=== PATIENT | female | born 1995 | race Caucasian/White ===

== ENCOUNTER 2017-06-17 17:26 | Emergency (ER) | payer OTHER ==
[~2017-06-17] VITALS: Ht 180.3 cm; Wt 177.6 kg
[~2017-06-17 17:26] MED LIST: BCPILLS PO; BUSP-8 PO; CLC100X PO; CLON0.1T12 PO; ESCI1TAB6 PO; FAMO20TA11 PO; GDN40 PO; HYDR1CAP85 PO; METF1TAB53 PO; ONDA4TAB10 PO; VENL150C PO; ZIPR60CA PO
[2017-06-17 17:51] VITALS: Ht 180.3 cm; Wt 177.6 kg
[2017-06-17] MEDS ORDERED: ONDANSETRON INJ 2 MG/ML 2 ML VIAL IV STA (18:50)
[2017-06-17] MEDS ORDERED: MoRPHine SULFATE 10 MG/ML CARP/VIAL IV STA (18:50)
[2017-06-17] MEDS ORDERED: OPTIRAY 320 IV PRN (19:00)
--- NOTE | 2017-06-17 19:06 | EMERGENCY ROOM VISIT NOTE ---
History Report prepared by Anat: Bertha Ramos Under the Supervision of: Dr. Kenney Zelaya M.D. First contact with patient: 18:25 Chief Complaint: NAUSEA Stated Complaint: NAUSEA,DIZZINESS,HISTORY OF SPLEEN PROBLEMS Nursing Triage Summary: abd pain pt had "spleen issue over the summer, splenic infarct" n/v History of Present Illness The patient is a 21 year old white female with a past medical history of GERD, cholecystectomy, and bipolar disorder who presents to the ED with a cc of intermittent left sided abdominal pain beginning 3 months ago. She did not come in earlier than today because she did not have insurance. Positive back pain, vomiting, nausea. Her last bowel movement was this morning but she states that is normal. Patient currently has scabies. No recent antibiotic use. Not on blood thinners. LNMP was a few months ago, but this is normal for her. Negative cough, fever, urinary symptoms. Source of History: patient Onset: 3 months ago Position: abdomen (left side) Timing: intermittent Associated Symptoms: + nausea, + vomiting, + back pain, No fevers, No cough , No urinary symptoms Review of Systems See HPI for pertinent positives and negatives. A total of ten systems were reviewed and were otherwise negative. Past Medical & Surgical Medical Problems: (1) Anxiety (2) Bipolar 1 disorder (3) Depression (4) GERD (gastroesophageal reflux disease) (5) Scabies Family History Cancer Grandmother has a history of UTIs. Social History Smoking Status: Never Smoker Housing Status: lives with family Occupation Status: student Current/Historical Medications Scheduled Control Pills ( Control Pills), 1 TAB PO DAILY Buspirone Hcl (Buspirone Hcl), 10 MG PO BID Clonidine Hcl (Catapres), 0.2 MG PO HS Docusate Sodium (Colace), 200 MG PO HS Escitalopram Oxalate (Lexapro), 5 MG PO DAILY Famotidine (Pepcid), 20 MG PO BID Metformin Hcl (Glucophage Ext Rel), 1,000 MG PO BID Omeprazole (Prilosec), 40 MG PO DAILY Ondasetron Odt (Zofran Odt), 4 MG SL Q6H Promethazine Hcl (Phenergan), 12.5 MG PO Q6H Venlafaxine Hcl (Effexor Xr), 300 MG PO QAM Ziprasidone (Ziprasidone HCl), 40 MG PO DAILY Ziprasidone Hcl (Geodon), 60 MG PO DAILY Scheduled PRN Hydroxyzine Pamoate (Vistaril), 25-50 MG PO TID PRN for Anxiety Ondasetron Odt (Zofran Odt), 4 MG PO Q4-6HRS PRN for Nausea Allergies Coded Allergies: No Known Allergies (Unverified , 06/23/14) Physical Exam Vital Signs Date Time Temp Pulse Resp B/P (MAP) Pulse Ox O2 Delivery O2 Flow Rate FiO2 06/17/17 21:18 36.8 86 20 119/47 100 Room Air 06/17/17 19:45 86 20 143/80 100 Room Air 06/17/17 19:10 86 06/17/17 18:50 83 20 159/80 100 Room Air 06/17/17 17:51 36.9 100 20 168/120 98 Room Air Physical Exam GENERAL: Awake, alert, well-appearing, NAD. Obese. HENT: Normocephalic, atraumatic. EYES: Normal conjunctiva. Sclera non-icteric. NECK: Supple. No nuchal rigidity. FROM. RESPIRATORY: CTAB, no rhonchi, wheezing, crackles CARDIAC: RRR, no MRG ABDOMEN: Soft, ND, BS+. LUQ tenderness to palpation. LLQ tenderness to palpation. No guarding or rebound. No peritonitis. MSK: No chest wall TTP, no LE edema NEURO: GCS 15, CN 2-12 intact, moves all 4s on command SKIN: No rash or jaundice noted. Medical Decision & Procedures ER Provider Diagnostic Interpretation: Radiology results as stated below per my review and radiologist interpretation: CT ABD/PELVIS IV CONTRAST ONLY CLINICAL HISTORY: Generalized abdominal pain. Obesity. COMPARISON STUDY: 05/26/2014 TECHNIQUE: Following the IV administration of 90 mL of Optiray-320, CT scan of the abdomen and pelvis was performed from the lung bases to the proximal femurs. Images are reviewed in the axial, sagittal, and coronal planes. IV contrast was administered without complication. A dose lowering technique was utilized adhering to the principles of ALARA. CT DOSE: 2473.32 mGy.cm FINDINGS: Lower chest: There are mild basilar atelectatic changes. Liver: The contrast-enhanced liver is normal in size, contour, and attenuation. There is no intrahepatic biliary ductal dilatation. The hepatic veins and portal veins are patent. Gallbladder: Surgically absent Spleen: Normal in size and attenuation. Pancreas: Unremarkable. Adrenal glands: Unremarkable. Kidneys: There is symmetric renal cortical enhancement. The kidneys are normal in size without hydronephrosis. Bowel: There are no transition zones indicate bowel obstruction. There is no acute diverticulitis. The appendix was not visualized with certainty. There are no findings to indicate acute appendicitis. There is debris within the stomach, likely secondary to a recent meal. Peritoneum: There is no intraperitoneal free air or abdominal ascites. Vasculature: The abdominal aorta is normal in course and caliber. Adenopathy: There are mildly prominent ileocolic lymph nodes, likely reactive Pelvic viscera: The bladder, and pelvic viscera are unremarkable. Skeletal structures: No destructive osseous lesions are seen. IMPRESSION: 1. No evidence of bowel obstruction. No evidence of free air 2. No acute inflammatory changes Electronically signed by: Shant Becerra M.D. 06/17/2017 8:19 PM Laboratory Results 06/17/17 16:54 Red Blood Count 4.37, Mean Corpuscular Volume 88.3, Mean Corpuscular Hemoglobin 28.4, Mean Corpuscular Hemoglobin Concent 32.1, Mean Platelet Volume 9.1, Neutrophils (%) (Auto) 54.2, Lymphocytes (%) (Auto) 36.3, Monocytes (%) (Auto) 7.8, Eosinophils (%) (Auto) 1.3, Basophils (%) (Auto) 0.3, Neutrophils # (Auto) 4.67, Lymphocytes # (Auto) 3.13, Monocytes # (Auto) 0.67, Eosinophils # (Auto) 0.11, Basophils # (Auto) 0.03 06/17/17 16:54 Test 06/17/17 16:54 06/17/17 18:40 White Blood Count 8.62 K/uL (4.8-10.8) Red Blood Count 4.37 M/uL (4.2-5.4) Hemoglobin 12.4 g/dL (12.0-16.0) Hematocrit 38.6 % (37-47) Mean Corpuscular Volume 88.3 fL (80-100) Mean Corpuscular Hemoglobin 28.4 pg (25-34) Mean Corpuscular Hemoglobin Concent 32.1 g/dl (32-36) Platelet Count 253 K/uL (130-400) Mean Platelet Volume 9.1 fL (7.4-10.4) Neutrophils (%) (Auto) 54.2 % Lymphocytes (%) (Auto) 36.3 % Monocytes (%) (Auto) 7.8 % Eosinophils (%) (Auto) 1.3 % Basophils (%) (Auto) 0.3 % Neutrophils # (Auto) 4.67 K/uL (1.4-6.5) Lymphocytes # (Auto) 3.13 K/uL (1.2-3.4) Monocytes # (Auto) 0.67 K/uL (0.11-0.59) Eosinophils # (Auto) 0.11 K/uL (0-0.5) Basophils # (Auto) 0.03 K/uL (0-0.2) RDW Standard Deviation 44.7 fL (36.4-46.3) RDW Coefficient of Variation 13.9 % (11.5-14.5) Immature Granulocyte % (Auto) 0.1 % Immature Granulocyte # (Auto) 0.01 K/uL (0.00-0.02) Anion Gap 9.0 mmol/L (3-11) Est Creatinine Clear Calc Drug Dose 272.5 ml/min Estimated GFR () > 150.0 Estimated GFR (Non- 131.9 BUN/Creatinine Ratio 24.2 (10-20) Calcium Level 8.9 mg/dl (8.5-10.1) Total Bilirubin 0.2 mg/dl (0.2-1) Direct Bilirubin < 0.1 mg/dl (0-0.2) Aspartate Amino Transf (AST/SGOT) 15 U/L (15-37) Alanine Aminotransferase (ALT/SGPT) 21 U/L (12-78) Alkaline Phosphatase 80 U/L (45-117) Total Protein 7.1 gm/dl (6.4-8.2) Albumin 3.4 gm/dl (3.4-5.0) Lipase 99 U/L (73-393) Urine Color YELLOW Urine Appearance CLEAR (CLEAR) Urine pH 6.5 (4.5-7.5) Urine Specific [place] 1.025 (1.000-1.030) Urine Protein NEG (NEG) Urine Glucose (UA) NEG (NEG) Urine Ketones NEG (NEG) Urine Occult Blood TRACE (NEG) Urine Nitrite NEG (NEG) Urine Bilirubin NEG (NEG) Urine Urobilinogen NEG (NEG) Urine Leukocyte Esterase NEG (NEG) Urine WBC (Auto) 1-5 /hpf (0-5) Urine RBC (Auto) 5-10 /hpf (0-4) Urine Hyaline Casts (Auto) 1-5 /lpf (0-5) Urine Epithelial Cells (Auto) >30 /lpf (0-5) Urine Bacteria (Auto) 2+ (NEG) Laboratory results reviewed by me Medications Administered Medications (Trade) Dose Ordered Sig/Raffaele Route Start Time Stop Time Status Last Admin Dose Admin Morphine Sulfate (MoRPHine SULFATE INJ) 10 mg NOW STAT IV 06/17/17 18:50 06/17/17 18:52 DC 06/17/17 19:05 10 MG Ondansetron HCl (Zofran Inj) 4 mg NOW STAT IV 06/17/17 18:50 06/17/17 18:52 DC 06/17/17 19:05 4 MG Diphenhydramine HCl (Benadryl Inj) 50 mg NOW STAT IV 06/17/17 19:17 06/17/17 19:23 DC 06/17/17 19:20 50 MG ED Course 1803: The patient was evaluated in room A2. A complete history and physical exam was performed. 2119: I reevaluated the patient. Discussed results and discharge instructions: She verbalized understanding and agreement. The patient is ready for discharge. Medical Decision The patient is a 21 year old white female with a past medical history of GERD, cholecystectomy, and bipolar disorder who presents to the ED with a cc of intermittent left sided abdominal pain beginning 3 months ago. Differential diagnosis: Etiologies such as DVT, musculoskeletal, infection, joint effusion, trauma, lymphedema, idiopathic, CHF, as well as others were entertained. Patient was seen and evaluated the bedside. Patient states she's had some intermittent left upper quadrant abdominal pains been ongoing over the last 2 months. Patient states that she recently got insurance she presented here today for further evaluation. She had complain of some nausea with some vomiting. She describes as 2 episodes. Patient states that she has had no recent trauma. Patient does have a prior history of US but does not have any vaginal complaints. Patient did have blood work completed along with urinalysis , pain and nausea control, and a CT of the abdomen pelvis. Patient's blood work was fairly unremarkable. Patient had a normal white blood cell count. Patient normal LFTs and lipase. Urinalysis was likely contaminated as the patient did have a fair amount of epithelial cells and did not describe any lower abdominal pain or dysuria. Patient's CT did not show anything that requires any surgical or medical management. Upon reassessment the patient's tachycardia and pain improved. Patient was no longer nauseated. Patient was told that she is to follow-up with her specialist given her past medical history and lack of insurance she has not taken medications in quite some time. Patient was given prescriptions for her reflux as well as for nausea. Patient was able to tolerate by mouth. Patient was deemed suitable for outpatient follow-up and discharge. Patient was given strict follow-up, discharge, and return precautions. All questions were answered. Patient was deemed suitable for outpatient follow-up at this time. Patient agreed with the plan of care and was safely discharged home. Medication Reconcilliation Current Medication List: was personally reviewed by me Blood Pressure Screening Patient's blood pressure: Elevated blood pressure Blood pressure disposition: Elevated BP felt to be situational Impression Primary Impression: Abdominal pain Additional Impression: Nausea & vomiting Scribe Attestation The scribe's documentation has been prepared under my direction and personally reviewed by me in its entirety. I confirm that the note above accurately reflects all work, treatment, procedures, and medical decision making performed by me. Departure Information Dispostion Home / Self-Care Prescriptions Ondasetron Odt (ZOFRAN ODT) 4 Mg Tab 4 MG SL Q6H for Nausea, #6 TAB Prov: Kenney Zelaya M.D. 06/17/17 Omeprazole (PRILOSEC) 40 Mg Cap 40 MG PO DAILY for 30 Days, #30 CAP Prov: Kenney Zelaya M.D. 06/17/17 Promethazine Hcl (PHENERGAN) 12.5 Mg Tab 12.5 MG PO Q6H, #6 TAB Prov: Kenney Zelaya M.D. 06/17/17 Referrals Binta Machado M.D. (PCP) Patient Instructions Abdominal Pain, My [facility] Additional Instructions Please return to the emergency department if you have worsening or recurrent symptoms not amenable to at-home treatment. Please call for a follow-up appointment with her primary care physician. Please take your medications as prescribed. If you have other concerns and/or complaints please feel free to also call your primary care physician's office or return the ED for further evaluation, management, and treatment. Please call your PCP, mental health specialist, and LABORATORY CHEMIST for further care. You received narcotic or benzodiazepene medication while in the emergency room today. This is an addictive medication that may cause drowziness as well as constipation. Do not drive, operate heavy machinery, or drink alcohol under the influence of this medication. You may take 600 mg Ibuprofen every 6 hours as needed for pain with food for no more than 2 consecutive days. You may take tylenol 1000 mg every 6 hours as needed for pain. You may take motrin and tylenol separately or at the same time. Take your medications as prescribed. You have been examined and treated today on an emergency basis only. This is not a substitute for, or an effort to provide, complete comprehensive medical care. It is impossible to recognize and treat all injuries or illnesses in a single emergency department visit. It is therefore important that you follow up closely with [facility], your PCP, and/or your specialist(s). Call as soon as possible for an appointment. Thank you for your time and consideration. I look forward to speaking with you again soon. Please don't hesitate to call us if you have any questions. Problem Qualifiers Primary Impression: Abdominal pain Abdominal location: left upper quadrant Qualified Codes: R10.12 - Left upper quadrant pain Additional Impression: Nausea & vomiting Vomiting type: unspecified Vomiting Intractability: non-intractable Qualified Codes: R11.2 - Nausea with vomiting, unspecified
[2017-06-17 19:08] LABS: URINE APPEARANCE CLEAR (CLEAR); URINE BILIRUBIN NEG (NEG); URINE COLOR YELLOW; URINE EPITHELIAL CELL AUTO >30 /lpf (0-5); URINE NITRITE NEG (NEG); URINE PH 6.5 (4.5-7.5); URINE SPECIFIC GRAVITY 1.025 (1.000-1.030); UROBILINOGEN NEG (NEG); ZZUR CULT IF INDIC CLEAN CATCH YES
[2017-06-17 19:09] LABS: MANUAL MICROSCOPIC REQUIRED? NO; REVIEW REQ? NO
[2017-06-17 19:13] LABS: BASO % 0.3 %; BASO ABS # 0.03 K/uL (0-0.2); COMPLETE YES; EOS % 1.3 %; HEMATOCRIT 38.6 % (37-47); IG% 0.1 %; LYMPH % 36.3 %; LYMPH ABS # 3.13 K/uL (1.2-3.4); MEAN CELL VOLUME 88.3 fL (80-100); MEAN CORPUSCULAR HEMOGLOBIN 28.4 pg (25-34); MEAN CORPUSCULAR HGB CONC 32.1 g/dl (32-36); MEAN PLATELET VOLUME 9.1 fL (7.4-10.4); MONO % 7.8 %; NEUT % 54.2 %; PLATELET COUNT 253 K/uL (130-400); RED BLOOD COUNT 4.37 M/uL (4.2-5.4); WHITE BLOOD COUNT 8.62 K/uL (4.8-10.8)
[2017-06-17] MEDS ORDERED: DiphenhydrAMINE HCL 50 MG/ML VIAL IV STA (19:17)
[2017-06-17 19:42] LABS: ALT/SGPT 21 U/L (12-78); BLOOD UREA NITROGEN 14 mg/dl (7-18); BUN/CREATININE RATIO 24.2 (10-20); CALCIUM 8.9 mg/dl (8.5-10.1); CARBON DIOXIDE 26 mmol/L (21-32); CHLORIDE 105 mmol/L (98-107); CREATININE 0.59 mg/dl (0.60-1.20); GLUCOSE 105 mg/dl (70-99); POTASSIUM 3.6 mmol/L (3.5-5.1); SODIUM 140 mmol/L (136-145)
[2017-06-17 19:45] LABS: ALKALINE PHOSPHATASE 80 U/L (45-117); AST/SGOT 15 U/L (15-37)
--- NOTE | 2017-06-17 20:20 | DIAGNOSTIC IMAGING REPORT ---
CT ABD/PELVIS IV CONTRAST ONLY CLINICAL HISTORY: Generalized abdominal pain. Obesity. COMPARISON STUDY: 05/26/2014 TECHNIQUE: Following the IV administration of 90 mL of Optiray-320, CT scan of the abdomen and pelvis was performed from the lung bases to the proximal femurs. Images are reviewed in the axial, sagittal, and coronal planes. IV contrast was administered without complication. A dose lowering technique was utilized adhering to the principles of ALARA. CT DOSE: 2473.32 mGy.cm FINDINGS: Lower chest: There are mild basilar atelectatic changes. Liver: The contrast-enhanced liver is normal in size, contour, and attenuation. There is no intrahepatic biliary ductal dilatation. The hepatic veins and portal veins are patent. Gallbladder: Surgically absent Spleen: Normal in size and attenuation. Pancreas: Unremarkable. Adrenal glands: Unremarkable. Kidneys: There is symmetric renal cortical enhancement. The kidneys are normal in size without hydronephrosis. Bowel: There are no transition zones indicate bowel obstruction. There is no acute diverticulitis. The appendix was not visualized with certainty. There are no findings to indicate acute appendicitis. There is debris within the stomach, likely secondary to a recent meal. Peritoneum: There is no intraperitoneal free air or abdominal ascites. Vasculature: The abdominal aorta is normal in course and caliber. Adenopathy: There are mildly prominent ileocolic lymph nodes, likely reactive Pelvic viscera: The bladder, and pelvic viscera are unremarkable. Skeletal structures: No destructive osseous lesions are seen. IMPRESSION: 1. No evidence of bowel obstruction. No evidence of free air 2. No acute inflammatory changes Electronically signed by: Shant Becerra M.D. 06/17/2017 8:19 PM Dictated Date/Time: 06/17/2017 8:15 PM
[2017-06-17 21:18] VITALS: BP 119/47; PULSE 86; TEMP 36.8; O2SAT 100
[2017-06-17] MEDS ORDERED: OMEP40CA41 PO ×2 (21:30→21:32)
[2017-06-17] MEDS ORDERED: PROM12.56 PO ×2 (21:30→21:32)
[2017-06-17] MEDS ORDERED: ONDA4TAB10 SL ×2 (21:30→21:32)
== END 2017-06-17 21:52 | disposition home or self-care (01) ==
LOC: C.EDB 17:29 → C.EDA 21:52
DX: R10.12 Left upper quadrant pain (principal); R11.2 Nausea with vomiting, unspecified; F31.9 Bipolar disorder, unspecified; F41.9 Anxiety disorder, unspecified; K21.9 Gastro-esophageal reflux disease without esophagitis; Z79.84 Long term (current) use of oral hypoglycemic drugs; Z79.899 Other long term (current) drug therapy; Z80.9 Family history of malignant neoplasm, unspecified

== ENCOUNTER 2017-07-27 16:32 | Emergency (ER) | payer OTHER ==
[~2017-07-27] VITALS: Ht 180.3 cm; Wt 165.0 kg
[~2017-07-27 16:32] MED LIST changes: +OMEP40CA41 PO; +ONDA4TAB10 SL; +PROM12.529 PO
[2017-07-27 16:44] VITALS: TEMP 36.6; Ht 180.3 cm; Wt 165.0 kg
[2017-07-27] MEDS ORDERED: ONDA4TAB46 PO (17:02)
[2017-07-27] MEDS ORDERED: PROM25TA16 PO (17:02)
[2017-07-27] MEDS ORDERED: LITH1TAB10 PO (17:02)
[2017-07-27] MEDS ORDERED: DOCU-94 PO (17:02)
[2017-07-27] MEDS ORDERED: ZNTT/150 PO (17:02)
[2017-07-27] MEDS ORDERED: POLY335019 PO (17:02)
[2017-07-27] MEDS ORDERED: HYDR25CA PO (17:02)
[2017-07-27] MEDS ORDERED: KETOROLAC TROMETHAMINE 30 MG/ML VIAL IV STA (17:39)
[2017-07-27] MEDS ORDERED: SODIUM CHLORIDE 0.9% 1000ML 1,000 ML IV STA (17:39)
[2017-07-27] MEDS ORDERED: ONDANSETRON INJ 2 MG/ML 2 ML VIAL IV STA (17:39)
--- NOTE | 2017-07-27 17:49 | EMERGENCY ROOM VISIT NOTE ---
History Report prepared by Anat: Isauro Prince Under the Supervision of: Dr. Artur Jenkins M.D. First contact with patient: 17:34 Chief Complaint: OTHER COMPLAINT Stated Complaint: FAINTING,VOMTING,FEVER,CHILLS,PAIN History of Present Illness The patient is a 21 year old female who presents to the Emergency Room with complaints of constant flu-like symptoms for the past 4 days. She has associated symptoms of fevers, vomiting, constipation, and chills. In addition, she states she had a syncope episode yesterday and has had intermittent loss of feeling in her arms and legs recently. She states she has not taken her fever with a thermometer. Patient denies associated symptoms of a cough and stuffy nose. 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 Pertinent past medical history includes a cholecystectomy and GERD. She states she has a history of migraines and dizziness. Patient denies any chance of . She denies any history of tick bites. Patient states she has not been able to take her regular medications because of these symptoms. Pertinent family medical history includes diabetes mellitus. Patient's PCP is Dr. Binta Machado of the [facility]. Source of History: patient Onset: 4 days ago Position: other (Flu-like symptoms) Timing: constant Associated Symptoms: + fevers, + chills, + vomiting Note: Patient has constipation. Review of Systems See HPI for pertinent positives & negatives. A total of 10 systems reviewed and were otherwise negative. Past Medical & Surgical Medical Problems: (1) Anxiety (2) Bipolar 1 disorder (3) Depression (4) GERD (gastroesophageal reflux disease) (5) Scabies Family History Cancer FHx: diabetes mellitus Social History Smoking Status: Former Smoker Housing Status: lives with family Occupation Status: student Current/Historical Medications Scheduled Armorel Carbonate Ext Rel (Lithobid Ext Rel), 300 MG PO BID Ranitidine (Zantac), 150 MG PO BID Scheduled PRN Docusate Sodium (Colace), 1 CAP PO UD PRN for Constipation Hydroxyzine Pamoate (Vistaril), 1-2 CAP PO 3-5XD PRN for Anxiety and/or Sedation Ondansetron Hcl (Zofran), 4-8 MG PO Q4-6H PRN for Nausea Polyethylene Glycol 3350 (Miralax), 17 GM PO DAILY PRN for Consult Promethazine HCl (Promethazine HCl), 25 MG PO UD PRN for Nausea or Vomiting Allergies Coded Allergies: Morphine (Verified Allergy, Unknown, HIVES, 07/27/17) Physical Exam Vital Signs Date Time Temp Pulse Resp B/P (MAP) Pulse Ox O2 Delivery O2 Flow Rate FiO2 07/27/17 19:48 90 18 138/80 98 07/27/17 18:37 94 16 143/89 100 Room Air 07/27/17 16:44 36.6 114 20 127/81 99 Room Air Physical Exam GENERAL: Patient is in no acute distress. HEENT: No acute trauma, normocephalic atraumatic, mucous membranes moist, no nasal congestion, no scleral icterus. No throat erythema or exudate. NECK: No stridor, no adenopathy, no meningismus, trachea is midline. LUNGS: Clear to auscultation bilaterally, no wheeze, no rhonchi, breath sounds equal. HEART: Without murmurs gallops or rubs, regular rate and rhythm. ABDOMEN: Soft, diffused to mildly tender, bowel sounds positive, no hernias, no peritonitis. EXTREMITIES: No cyanosis or edema, full range of motion of all the joints without pain or difficulty, no signs for acute trauma. NEUROLOGIC: Oriented x 3, no acute motor or sensory deficits, no focal weakness. SKIN: No rash, no jaundice, no diaphoresis. Medical Decision & Procedures ER Provider Diagnostic Interpretation: Radiology results as stated below per my review and radiologist interpretation: ABDOMEN 2VIEW W/PA CHEST RTN CLINICAL HISTORY: vomiting nausea COMPARISON STUDY: No previous studies for comparison. FINDINGS: The soft tissues, psoas shadows, renal outlines and intestinal gas pattern appear normal. There is no evidence for bowel obstruction. There is no evidence for free intraperitoneal air. No abnormal abdominal calcifications are seen. A frontal view of the chest was performed and is unremarkable. IMPRESSION: Normal study. The above report was generated using voice recognition software. It may contain grammatical, syntax or spelling errors. Electronically signed by: Tez Heck M.D. 07/27/2017 7:23 PM HEAD WITHOUT CONTRAST (CT) CT DOSE: 537.48 mGy.cm HISTORY: Mental status change headaches TECHNIQUE: Multiaxial CT images of the head were performed without the use of intravenous contrast. A dose lowering technique was utilized adhering to the principles of ALARA. Comparison: None. Findings: The paranasal sinuses and mastoid air cells are clear. The calvarium and skull base are intact. The ventricles and sulci are within normal limits. There is no mass, hematoma, midline shift, or acute infarct. Impression: No acute intracranial abnormality. The above report was generated using voice recognition software. It may contain grammatical, syntax or spelling errors. Electronically signed by: Tez Heck M.D. 07/27/2017 6:51 PM Laboratory Results 07/27/17 17:05 Red Blood Count 4.91, Mean Corpuscular Volume 87.4, Mean Corpuscular Hemoglobin 29.1, Mean Corpuscular Hemoglobin Concent 33.3, Mean Platelet Volume 8.8, Neutrophils (%) (Auto) 61.4, Lymphocytes (%) (Auto) 32.4, Monocytes (%) (Auto) 4.8, Eosinophils (%) (Auto) 0.9, Basophils (%) (Auto) 0.3, Neutrophils # (Auto) 5.55, Lymphocytes # (Auto) 2.93, Monocytes # (Auto) 0.43, Eosinophils # (Auto) 0.08, Basophils # (Auto) 0.03 07/27/17 17:05 Test 07/27/17 17:05 07/27/17 17:10 07/27/17 17:25 White Blood Count 9.04 K/uL (4.8-10.8) Red Blood Count 4.91 M/uL (4.2-5.4) Hemoglobin 14.3 g/dL (12.0-16.0) Hematocrit 42.9 % (37-47) Mean Corpuscular Volume 87.4 fL (80-100) Mean Corpuscular Hemoglobin 29.1 pg (25-34) Mean Corpuscular Hemoglobin Concent 33.3 g/dl (32-36) Platelet Count 278 K/uL (130-400) Mean Platelet Volume 8.8 fL (7.4-10.4) Neutrophils (%) (Auto) 61.4 % Lymphocytes (%) (Auto) 32.4 % Monocytes (%) (Auto) 4.8 % Eosinophils (%) (Auto) 0.9 % Basophils (%) (Auto) 0.3 % Neutrophils # (Auto) 5.55 K/uL (1.4-6.5) Lymphocytes # (Auto) 2.93 K/uL (1.2-3.4) Monocytes # (Auto) 0.43 K/uL (0.11-0.59) Eosinophils # (Auto) 0.08 K/uL (0-0.5) Basophils # (Auto) 0.03 K/uL (0-0.2) RDW Standard Deviation 42.1 fL (36.4-46.3) RDW Coefficient of Variation 13.2 % (11.5-14.5) Immature Granulocyte % (Auto) 0.2 % Immature Granulocyte # (Auto) 0.02 K/uL (0.00-0.02) Anion Gap 8.0 mmol/L (3-11) Est Creatinine Clear Calc Drug Dose 216.4 ml/min Estimated GFR () 142.1 Estimated GFR (Non- 122.6 BUN/Creatinine Ratio 27.1 (10-20) Calcium Level 9.2 mg/dl (8.5-10.1) Magnesium Level 1.9 mg/dl (1.8-2.4) Total Bilirubin 0.3 mg/dl (0.2-1) Aspartate Amino Transf (AST/SGOT) 11 U/L (15-37) Alanine Aminotransferase (ALT/SGPT) 23 U/L (12-78) Alkaline Phosphatase 76 U/L (45-117) Total Creatine Kinase 42 U/L (26-192) Troponin I < 0.015 ng/ml (0-0.045) Total Protein 7.5 gm/dl (6.4-8.2) Albumin 3.4 gm/dl (3.4-5.0) Globulin 4.1 gm/dl (2.5-4.0) Albumin/Globulin Ratio 0.8 (0.9-2) Thyroid Stimulating Hormone (TSH) 2.320 uIu/ml (0.300-4.500) Human Chorionic Gonadotropin, Qual NEG (NEG) Armorel Level < 0.2 mMOL/L (0.6-1.2) Lyme Disease IgG Antibody NEG (NEG) Lyme Disease IgM Antibody NEG (NEG) Urine Color YELLOW Urine Appearance CLEAR (CLEAR) Urine pH 6.0 (4.5-7.5) Urine Specific Renner 1.022 (1.000-1.030) Urine Protein NEG (NEG) Urine Glucose (UA) NEG (NEG) Urine Ketones NEG (NEG) Urine Occult Blood TRACE (NEG) Urine Nitrite NEG (NEG) Urine Bilirubin NEG (NEG) Urine Urobilinogen NEG (NEG) Urine Leukocyte Esterase NEG (NEG) Urine WBC (Auto) 1-5 /hpf (0-5) Urine RBC (Auto) 0-4 /hpf (0-4) Urine Hyaline Casts (Auto) 0 /lpf (0-5) Urine Epithelial Cells (Auto) >30 /lpf (0-5) Urine Bacteria (Auto) 1+ (NEG) Influenza Type A Antigen Neg for Influ A (NEG) Influenza Type B Antigen Neg for Influ B (NEG) Laboratory results reviewed by me. Medications Administered Medications (Trade) Dose Ordered Sig/Raffaele Route Start Time Stop Time Status Last Admin Dose Admin Ondansetron HCl (Zofran Inj) 4 mg NOW STAT IV 07/27/17 17:39 07/27/17 17:43 DC 07/27/17 17:53 4 MG Sodium Chloride 1,000 ml @ 999 mls/hr Q1H1M STAT IV 07/27/17 17:39 07/27/17 18:39 DC 07/27/17 17:53 999 MLS/HR Acetaminophen (Tylenol Tab) 1,000 mg NOW STAT PO 07/27/17 18:10 07/27/17 18:11 DC 07/27/17 18:35 1,000 MG ECG Indication: other (Flu-like symptoms) Rate (beats per minute): 92 Rhythm: normal sinus Findings: no acute ischemic change, no ectopy ED Course 1735: The patient was evaluated in room A3. A complete history and physical exam was performed. 1739: Toradol Inj 30mg IV, Sodium Chloride 1000 ml @ 999 mls/hr IV, Zofran Inj 4mg IV 1810: Tylenol Tab 1000mg PO 1930: Reevaluated the patient. Discussed results and discharge instructions. She verbalized understanding and agreement. The patient is ready for discharge. Medical Decision Differential Diagnosis: Influenza or flu-like illness, dehydration, electrolyte imbalance, Lyme disease , thyroid disorder There is no leukocytosis or concerning anemia. No significant electrolyte abnormality, kidney failure or hepatitis. The patient appears to be in a euthyroid state. testing is negative. Armorel level returned low, the value was not toxic. Urinalysis shows contamination, no obvious infection. Lyme disease testing was negative. Influenza testing was negative. Obstruction series did not show pneumonia or bowel obstruction. EKG showed a sinus rhythm, no acute ischemia. Brain CT showed no acute bleed or mass effect. Cardiac enzyme testing times one was not consistent with acute cardiac injury. The patient received oral Tylenol, IV saline, IV Zofran and IV Toradol. The patient has had numerous symptoms ongoing for months if not even longer-- her flulike symptoms have been present for just 3 or 4 days. She presented a list to me almost 3 pages long of complaints she's had over the last several months. I reassured the patient that I found nothing emergent today on workup. She was safe for discharge with outpatient family doctor follow-up. [id number] pain medication, rest and hydration were encouraged. She likely has a flulike illness that caused the new symptoms for the last 3 or 4 days. Medication Reconcilliation Current Medication List: was personally reviewed by me Blood Pressure Screening Patient's blood pressure: Elevated blood pressure Blood pressure disposition: Elevated BP felt to be situational Impression Primary Impression: Flu-like symptoms Scribe Attestation The scribe's documentation has been prepared under my direction and personally reviewed by me in its entirety. I confirm that the note above accurately reflects all work, treatment, procedures, and medical decision making performed by me. Departure Information Dispostion Home / Self-Care Referrals Binta Machado M.D. (PCP) Forms HOME CARE DOCUMENTATION FORM, IMPORTANT VISIT INFORMATION, WORK / SCHOOL INSTRUCTIONS Patient Instructions My [facility] Additional Instructions fluids rest otc pain meds--tylenol see john smyht for a recheck this week all lab testing and imaging was ok today as discussed return if worsening
[2017-07-27 17:51] LABS: BASO % 0.3 %; BASO ABS # 0.03 K/uL (0-0.2); EOS % 0.9 %; EOS ABS # 0.08 K/uL (0-0.5); HEMATOCRIT 42.9 % (37-47); HEMOGLOBIN 14.3 g/dL (12.0-16.0); IG# 0.02 K/uL (0.00-0.02); LYMPH % 32.4 %; LYMPH ABS # 2.93 K/uL (1.2-3.4); MEAN CELL VOLUME 87.4 fL (80-100); MEAN CORPUSCULAR HEMOGLOBIN 29.1 pg (25-34); MEAN CORPUSCULAR HGB CONC 33.3 g/dl (32-36); MEAN PLATELET VOLUME 8.8 fL (7.4-10.4); MONO % 4.8 %; MONO ABS # 0.43 K/uL (0.11-0.59); NEUT % 61.4 %; NEUT ABS # 5.55 K/uL (1.4-6.5); PLATELET COUNT 278 K/uL (130-400); RED CELL DISTRIBUTION WIDTH CV 13.2 % (11.5-14.5); RED CELL DISTRIBUTION WIDTH SD 42.1 fL (36.4-46.3); WHITE BLOOD COUNT 9.04 K/uL (4.8-10.8)
[2017-07-27 18:01] LABS: ALBUMIN 3.4 gm/dl (3.4-5.0); ALT/SGPT 23 U/L (12-78); BLOOD UREA NITROGEN 19 mg/dl (7-18); CALCIUM 9.2 mg/dl (8.5-10.1); CARBON DIOXIDE 25 mmol/L (21-32); CREATININE 0.71 mg/dl (0.60-1.20); GLUCOSE 124 mg/dl (70-99); POTASSIUM 3.5 mmol/L (3.5-5.1); SODIUM 138 mmol/L (136-145)
[2017-07-27] MEDS ORDERED: ACETAMINOPHEN 500 MG TAB PO STA (18:10)
[2017-07-27 18:11] LABS: ALKALINE PHOSPHATASE 76 U/L (45-117); AST/SGOT 11 U/L (15-37); TOTAL PROTEIN 7.5 gm/dl (6.4-8.2)
--- NOTE | 2017-07-27 18:52 | DIAGNOSTIC IMAGING REPORT ---
HEAD WITHOUT CONTRAST (CT) CT DOSE: 537.48 mGy.cm HISTORY: Mental status change headaches TECHNIQUE: Multiaxial CT images of the head were performed without the use of intravenous contrast. A dose lowering technique was utilized adhering to the principles of ALARA. Comparison: None. Findings: The paranasal sinuses and mastoid air cells are clear. The calvarium and skull base are intact. The ventricles and sulci are within normal limits. There is no mass, hematoma, midline shift, or acute infarct. Impression: No acute intracranial abnormality. The above report was generated using voice recognition software. It may contain grammatical, syntax or spelling errors. Electronically signed by: Tez Heck M.D. 07/27/2017 6:51 PM Dictated Date/Time: 07/27/2017 6:50 PM
[2017-07-27 19:00] LABS: INFLUENZA B ANTIGEN Neg for Influ B (NEG)
--- NOTE | 2017-07-27 19:24 | DIAGNOSTIC IMAGING REPORT ---
ABDOMEN 2VIEW W/PA CHEST RTN CLINICAL HISTORY: vomiting nausea COMPARISON STUDY: No previous studies for comparison. FINDINGS: The soft tissues, psoas shadows, renal outlines and intestinal gas pattern appear normal. There is no evidence for bowel obstruction. There is no evidence for free intraperitoneal air. No abnormal abdominal calcifications are seen. A frontal view of the chest was performed and is unremarkable. IMPRESSION: Normal study. The above report was generated using voice recognition software. It may contain grammatical, syntax or spelling errors. Electronically signed by: Tez Heck M.D. 07/27/2017 7:23 PM Dictated Date/Time: 07/27/2017 7:22 PM
[2017-07-27 19:48] VITALS: BP 138/80; PULSE 90; O2SAT 98
== END 2017-07-27 19:49 | disposition home or self-care (01) ==
LOC: C.EDB 16:33 → C.EDA 19:49
DX: R50.9 Fever, unspecified (principal); R11.10 Vomiting, unspecified; K59.00 Constipation, unspecified; R55 Syncope and collapse; K21.9 Gastro-esophageal reflux disease without esophagitis; G43.909 Migraine, unspecified, not intractable, without status migrainosus; R42 Dizziness and giddiness; F41.9 Anxiety disorder, unspecified; F32.9 Major depressive disorder, single episode, unspecified; F31.9 Bipolar disorder, unspecified; Z83.3 Family history of diabetes mellitus; Z87.891 Personal history of nicotine dependence